=== PATIENT | female | born 1985 | race African-American/Black ===

== ENCOUNTER 2017-05-03 19:00 | Emergency (ER) | payer MEDICAID ==
[~2017-05-03] VITALS: Ht 157.5 cm; Wt 85.4 kg
[2017-05-03 19:48] VITALS: BP 120/60
== END 2017-05-03 23:30 | disposition left against medical advice (07) ==
LOC: ER 19:00
DX: N94.9 Unspecified condition associated with female genital organs and menstrual cycle (principal); Z53.21 Procedure and treatment not carried out due to patient leaving prior to being seen by health care provider